=== PATIENT | male | born 1995 | race Caucasian/White ===

== ENCOUNTER → 2018-03-16 | Outpatient (CLI) | payer OTHER | LOC: MRI 10:14 | DX: S39.81XA Other specified injuries of abdomen, initial encounter (principal); M85.30 Osteitis condensans, unspecified site; X58.XXXA Exposure to other specified factors, initial encounter; Y93.89 Activity, other specified; Y92.89 Other specified places as the place of occurrence of the external cause; Y99.8 Other external cause status ==

== ENCOUNTER → 2018-03-28 | Outpatient (CLI) | payer OTHER | LOC: CAT 15:37 | DX: R10.9 Unspecified abdominal pain (principal) ==